=== PATIENT | female | born 1980 ===

== ENCOUNTER 2024-01-12 17:56 | Outpatient (REF) | payer MEDICAID, OTHER, SELFPAY | END 2024-01-12 17:57 | disposition home or self-care (01) | LOC: HO.HHCLNP 17:56 | PROVIDERS: Visit Provider Student in an Organized Health Care Education/Training Program | DX: R39.9 Unspecified symptoms and signs involving the genitourinary system (principal) | CPT/HCPCS: 87086; 87088; 87186 ==